=== PATIENT | female | born 2000 | race American Indian/Alaskan Native ===

== ENCOUNTER 2020-09-30 19:08 | Emergency (ER) | payer SELFPAY ==
[2020-09-30 20:05] VITALS: BP 120/84
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
[2020-09-30] MEDS ORDERED: ETOMIDATE 20 MG/10 ML INJ IV ONE (22:52)
== END 2020-09-30 21:00 | disposition home or self-care (01) ==
LOC: ED 19:08
DX: S01.91XA Laceration without foreign body of unspecified part of head, initial encounter (principal); S09.90XA Unspecified injury of head, initial encounter; Y04.2XXA Assault by strike against or bumped into by another person, initial encounter; Y93.89 Activity, other specified; Y92.89 Other specified places as the place of occurrence of the external cause; Y99.8 Other external cause status
CPT/HCPCS: 99282